=== PATIENT | male | born 1950 | race Caucasian/White ===

== ENCOUNTER 2022-07-05 12:51 | Inpatient (IN) | payer OTHER ==
[~2022-07-05] VITALS: Ht 182.9 cm; Wt 62.1 kg
[2022-07-05 12:56] VITALS: BP 183/135
[2022-07-05 14:21] LABS: HEMOGLOBIN 12.2 g/dL (12.0-18.0)
--- NOTE | 2022-07-05 14:24 | NUR ---
PT W/C ASSISTED TO ER BED 12 FROM RAD
[2022-07-05 14:29] LABS: HEMATOCRIT 37.8 % (36-52); MEAN CORPUSCULAR HEMOGLOBIN 29 pg (27-31); MEAN CORPUSCULAR HGB CONC 32 g/dL (33-37); MEAN CORPUSCULAR VOLUME 88.4 fL (80-94); PLATELET COUNT (AUTO) 161 K/uL (140-450); RED BLOOD CELL COUNT(AUTO) 4.27 MIL/uL (4.20-6.10); RED CELL DISTRIBUTION WIDTH 15.5 % (11.6-13.7)
--- NOTE | 2022-07-05 14:31 | NUR ---
71/M PRESENTS TO ED WITH C/O LEFT UPPER BACK PAIN X3 DAYS. PATIENT DENIES RECENT INJURY OR TRAUMA, RPEORTS HE HAS BEEN TAKING IBUPROFEN AND USING LIDOCAINE PATCHES WITH NO RELIEF. AREA IS NON TENDER TO TOUCH, PATIENT DENIES N/V/D, CP OR WORSENING SOB WITH HX OF COPD.
[2022-07-05 14:50] LABS: ALBUMIN 3.9 g/dL (3.4-5.0); ANION GAP 9.6 (8-16); ASPARTATE AMINOTRANSFERASE 19 U/L (15-37); CARBON DIOXIDE 32.4 mmol/L (21-32); CHLORIDE 92 mmol/L (98-107); CREATININE 0.8 mg/dL (0.6-1.3); GFR ARICAN-AMERICAN 123 mL/min (>90); GLUCOSE 122 mg/dL (74-106); SODIUM SERUM 129 mmol/L (136-145); TOTAL BILIRUBIN 0.5 mg/dL (0.0-1.0); UREA NITROGEN, BLOOD 14 mg/dL (7-18)
[2022-07-05 14:51] LABS: WHITE BLOOD COUNT (AUTO) 25.9 K/uL (4.8-10.8)
[2022-07-05 15:05] LABS: MONOCYTES % (MANUAL) 7 % (5-12)
[2022-07-05 15:06] LABS: LYMPHOCYTES % (MANUAL) 45 % (20-46)
[2022-07-05] MEDS ORDERED: MORPHINE SULFATE 4 MG/ML SYR IVP ONE (16:00)
--- NOTE | 2022-07-05 17:25 | NUR ---
PATIENT TAKEN TO CT VIA W/C
[2022-07-05] MEDS ORDERED: MORPHINE SULFATE 10 MG/ML VIAL IVP ONE (17:55)
[2022-07-05] MEDS ORDERED: ONDANSETRON 4 MG/2 ML VIAL IVP ONE (18:05)
[2022-07-05] MEDS ORDERED: ESMOLOL 100 MG/10 ML VIAL IV ONE (18:05)
--- NOTE | 2022-07-05 19:22 | NUR ---
Pt report given to DAYANA DUKE. Transfer of care at this time.
--- NOTE | 2022-07-05 19:32 | NUR ---
DAUGHTER CALLED REQUESTING UPDATE RAJ MARTIN [phone] CHECK IF PHONE IS AVAILABLE
[2022-07-05] MEDS ORDERED: KCL 20 MEQ/WATER INJ PREMIX 200 ML IV PRN (20:15)
[2022-07-05] MEDS ORDERED: ONDANSETRON 4 MG/2 ML VIAL IVP PRN (20:15)
[2022-07-05] MEDS ORDERED: AZITHROMYCIN 500 MG in DEXTROSE 5% 250 ML IV ONE (20:15)
[2022-07-05] MEDS ORDERED: MAG SULF 2000 MG/WATER PREMIX 50 ML IV PRN (20:15)
[2022-07-05] MEDS ORDERED: POTASSIUM CHLORIDE 10 MEQ TABER PO PRN (20:15)
[2022-07-05] MEDS ORDERED: MAGNESIUM OXIDE 400 MG TAB PO PRN (20:15)
[2022-07-05] MEDS ORDERED: ACETAMINOPHEN 325 MG TAB PO PRN (20:15)
[2022-07-05] MEDS ORDERED: cefTRIAXone 1,000 MG VIAL ONE (21:26)
[2022-07-05] MEDS ORDERED: SPIMDI INH (22:02)
[2022-07-05] MEDS ORDERED: ALBU0.0912 IH (22:02)
[2022-07-05] MEDS ORDERED: BUDE1AER IH (22:02)
--- NOTE | 2022-07-05 22:13 | NUR ---
Patient will be admitted to care of Juan DUKE.. Admited to telemetry. Will go to room 112B. Belongings list completed. Bedside report given to Juan DUKE. Juan DUKE verbalized understanding of report, no further questions.
--- NOTE | 2022-07-05 22:30 | NUR ---
RECEIVED A NEW ADMIT PATIENT FROM ER AWAKE AOX4. CC: NONRADIATING LEFT UPPER BACK PAIN ASSOCIATED WITH SOB, NAUSEA AND ABDOMINAL PAIN. PT ON TELE MONITOR. NO DISTRESS NOTED. SKIN WARM AND DRY TO THE TOUCH. MRSA SCREENING DONE. ALL SAFETY PRECAUTIONS ARE IN PLACE. CALL LIGHT WITHIN REACH.
[2022-07-05] MEDS ORDERED: AZITHROMYCIN 500 MG INJ VIAL IV ONE (22:52)
[2022-07-05] MEDS: HYDROcodone/APAP 5/325 MG 1 TAB TAB PO PRN (22:55)
--- NOTE | 2022-07-05 22:55 | NUR ---
PT COMPLAINED OF MODERATE BACK PAIN, MEDICATED.
--- NOTE | 2022-07-05 23:25 | NUR ---
STARTED A NEW IV ON THE RIGHT UPPER ARM WITH GOOD BACK FLOW OF BLOOD, TOLERATED WELL.
[2022-07-05] MEDS: AZITHROMYCIN 500 MG in DEXTROSE 5% 250 ML IV SCH (23:34)
[2022-07-06] VITALS (7 sets, daily range): BP systolic 83–141; BP diastolic 54–91
--- NOTE | 2022-07-06 03:10 | NUR ---
ROUNDED PT, PATIENT SLEEPING . BREATHING NORMAL WITH SYMMETRICAL RISE AND FALL OF THE CHEST.
--- NOTE | 2022-07-06 04:50 | NUR ---
BP-78/50 P-[address] GARCIA ARTIST REPRESENTATIVE WITH NEW ORDER CARRIED OUT
[2022-07-06] MEDS ORDERED: NACL 0.9% 1,000 ML IV SCH (04:55)
[2022-07-06] MEDS: HYDROcodone/APAP 5/325 MG 1 TAB TAB PO PRN (05:37)
--- NOTE | 2022-07-06 07:30 | NUR ---
ENDORSED PATIENT TO MORNING SHIFT NURSE FOR CONTINUITY OF CARE. BP- 113/76 , P-80
--- NOTE | 2022-07-06 07:31 | NUR ---
RECEIVED REPORT FROM ORDER CHECKER NURSE. PATIENT LYING DOWN IN BED, ON O2 NC 3L/MIN, DENIES CHEST PAIN, MILD DYSPNEA COMPLAINT. IV SITE INTACT, PATENT, ON SALINE LOCK. SKIN INTACT. REVIEWED PLAN OF CARE WITH PATIENT. VERBALIZED UNDERSTANDING. SAFETY MEASURES IN PLACE, CALL LIGHT WITHIN REACH. WILL CONTINUE TO MONITOR.
[2022-07-06 07:40] LABS: CARBON DIOXIDE 28.1 mmol/L (21-32); CREATININE 0.8 mg/dL (0.6-1.3)
[2022-07-06 07:51] LABS: HEMATOCRIT 27.3 % (36-52); HEMOGLOBIN 8.8 g/dL (12.0-18.0); LYMPHOCYTES % (AUTO) 52.8 % (20.5-51.1); MEAN CORPUSCULAR HEMOGLOBIN 29 pg (27-31); MEAN CORPUSCULAR HGB CONC 32 g/dL (33-37); MEAN CORPUSCULAR VOLUME 89.2 fL (80-94); MONOCYTES # (AUTO) 1.2 K/uL (0.8-1.0); MONOCYTES % (AUTO) 3.1 % (1.7-9.3); NEUTROPHILS # (AUTO) 16.8 K/uL (1.8-7.7); NEUTROPHILS % (AUTO) 44.1 % (42.2-75.2); PLATELET COUNT (AUTO) 146 K/uL (140-450); RED BLOOD CELL COUNT(AUTO) 3.06 MIL/uL (4.20-6.10); RED CELL DISTRIBUTION WIDTH 14.8 % (11.6-13.7)
[2022-07-06 08:25] LABS: POTASSIUM 6.1 mmol/L (3.5-5.1)
[2022-07-06] MEDS: ENOXAPARIN 40 MG/0.4 ML SYR SUBQ SCH (09:00)
--- NOTE | 2022-07-06 09:00 | NUR ---
PATIENT HAS BEEN SCREENED AND CATEGORIZED MODERATE NUTRITION RISK. PATIENT WILL BE SEEN WITHIN 3-5 DAYS OF ADMISSION. 07/06/22-07/10/22 REVIEWED BY MAUREEN JC RD
[2022-07-06] MEDS ORDERED: NACL 0.9% 500 ML IV SCH (09:05)
--- NOTE | 2022-07-06 09:29 | NUR ---
500 ML NS BOLUS STARTED AT THIS TIME PER MD ORDERS DUE TO LOW BP. LOVENOX NOT GIVEN AT THIS TIME D/T H&H DECREASING AND AAA ON CT. WILL CONTINUE OT MONITOR.
--- NOTE | 2022-07-06 14:12 | NUR ---
DC PLANNING Met patient at bedside to complete assessment. Patient reports residing with spouse at home at the address listed. Patient identified Gabi Fernandez () as emergency contact and MDM. Patient denied AD in place. AD packet given and patient will talk with his .Patient reports being compliant with medications and denies barriers to accessing medications. Patient reports his PCP is Nelly Cage NP.Patient reports his last visit to his PCP was 2 weeks ago.Patient reports ambulatory and denies use of DME. Patient denies MH/SA hx. DC plan is for patient to return home with providing transportation and required care if needed.
[2022-07-06 15:01] LABS: HEMATOCRIT 24.3 % (36-52); HEMOGLOBIN 7.8 g/dL (12.0-18.0); MEAN CORPUSCULAR HEMOGLOBIN 29 pg (27-31); MEAN CORPUSCULAR HGB CONC 32 g/dL (33-37); MEAN CORPUSCULAR VOLUME 88.8 fL (80-94); PLATELET COUNT (AUTO) 144 K/uL (140-450); RED BLOOD CELL COUNT(AUTO) 2.73 MIL/uL (4.20-6.10)
[2022-07-06 15:02] LABS: WHITE BLOOD COUNT (AUTO) 36.3 K/uL (4.8-10.8)
[2022-07-06 15:11] LABS: ANION GAP 13.9 (8-16); CARBON DIOXIDE 25.9 mmol/L (21-32); CREATININE 1.1 mg/dL (0.6-1.3); POTASSIUM 5.8 mmol/L (3.5-5.1)
[2022-07-06] MEDS: IPRATROPIUM 0.02% 0.5 MG/2.5 ML NEBU INH SCH ×2 (15:40→20:06)
[2022-07-06 16:00] LABS: BLASTS, MANUAL % 2 % (0-0); LYMPHOCYTES % (MANUAL) 55 % (20-46); METAMYELOCYTES % 2 % (0-0); MONOCYTES % (MANUAL) 1 % (5-12); PROMYELOCYTES % 1 % (0-0)
[2022-07-06] MEDS: predniSONE 20 MG TAB PO SCH (16:55)
[2022-07-06] MEDS: NACL 0.9% 1,000 ML IV SCH (16:55)
[2022-07-06] MEDS ORDERED: SODIUM ZIRCONIUM CYCLOSILICATE 10 GM POWD.PACK PO SCH (17:00)
[2022-07-06] MEDS ORDERED: SODIUM CHLORIDE 1 GM TAB PO SCH (17:00)
--- NOTE | 2022-07-06 17:08 | NUR ---
SCHEDULED MEDICATIONS DUE GIVEN. WILL CONTINUE TO MONITOR.
--- NOTE | 2022-07-06 18:30 | NUR ---
COMPLAINS OF LOWER BACK PAIN, ACHING MILD. TYLENOL PO PRN GIVEN AT THIS TIME.
[2022-07-06 18:44] LABS: APPEARANCE,URINE CLEAR (CLEAR); BILIRUBIN,URINE 1+ (NEGATIVE); BLOOD, URINE NEGATIVE (NEGATIVE); COLOR,URINE YELLOW (YELLOW); LEUKOCYTE ESTERASE ,URINE NEGATIVE (NEGATIVE); NITRITE, URINE NEGATIVE (NEGATIVE); UGLUCOSE NEGATIVE (NEGATIVE)
[2022-07-06 19:14] LABS: ANION GAP 14.8 (8-16); CARBON DIOXIDE 24.4 mmol/L (21-32); CREATININE 1.3 mg/dL (0.6-1.3); POTASSIUM 5.2 mmol/L (3.5-5.1)
--- NOTE | 2022-07-06 19:33 | NUR ---
GAVE REPORT TO RELIGIOUS ASSISTANT NURSE FOR CONTINUITY OF CARE. PATIENT IN STABLE CONDITION.
[2022-07-06] MEDS: BUDESONIDE 0.5 MG/2 ML NEBU INH SCH (20:06)
--- NOTE | 2022-07-06 20:17 | NUR ---
PT PRESENTS LAYING IN BED, HOB ELEVATED ON 3 LPM N/C CURRENT SPO2 IS 88%. INCREASED TO 4LPM SPO2 IMPROVED >92%. PT DEMONSTRATES STRONG PRODUCTIVE COUGH, ADMINISTERED HHN TX VIA SVN PLUS MASK WITH NO ADVERSE EFFECTS NOTED. PT STATES HE IS IN PAIN RN AWARE, WILL CONTINUE TO MONITOR.
[2022-07-06] MEDS: AZITHROMYCIN 500 MG in DEXTROSE 5% 250 ML IV SCH (21:00)
[2022-07-06] MEDS ORDERED: NON-FORMULARY ITEM (Budesonide/Formoterol Fumarate* (Symbicort 160-4.5 Mcg Inhaler*) 2 PUF IH SCH (21:00)
[2022-07-07] VITALS: BP 122/74
--- NOTE | 2022-07-07 00:35 | NUR ---
PATIENT AWAKE ALERT NO C/O OF PAIN IV LEAKING RESTART IV IN LEFT F.A 22 GA PATIENT. SINUS ON MONITOR HAS NS INFUSING AT 75 HOUR. PATIENT USING URINAL NO BOWEL MOVEMENT YET.
--- NOTE | 2022-07-07 00:40 | NUR ---
PATIENT HAS 4 LITERS HUMIDIFIER SAT 96% TEMP 97.8 NO DISTRESS NOTED.
[2022-07-07] MEDS: IPRATROPIUM 0.02% 0.5 MG/2.5 ML NEBU INH SCH ×3 (01:00→13:08)
[2022-07-07 04:00] VITALS: BP 131/72
[2022-07-07] MEDS: ALBUTEROL 0.083% 2.5 MG/3 ML NEBU INH PRN ×3 (04:11→13:09)
--- NOTE | 2022-07-07 04:35 | NUR ---
RESPONDED TO PT ROOM FOR REQUEST OF SERVICE FROM RN DUE TO THE PT STATING HE WAS SOB. PT IS LAYING IN BED HOB ELEVATED, ANTERIOR AUSCULTATIONS REVEALED DIMINISHED BS THROUGHOUT, CURRENTLY ON 4LPM N/C SPO2 96%. ADMINISTERED HHN TX VIA SVN PLUS MASK WITH NO ADVERSE EFFECTS. PT STATES THE TX MADE HIM FEEL BETTER. HE ALSO MENTIONED HE WAS IN PAIN RN IS AWARE WILL CONTINUE TO MONITOR.
[2022-07-07] MEDS: NACL 0.9% 1,000 ML IV SCH ×2 (06:00→18:19)
--- NOTE | 2022-07-07 07:19 | NUR ---
LOC AWAKE AND ALERT VERBALLY RESPONSIVE TO MEETING FACILITATOR VERBAL COMMANDS DEEP CHEST RISE PMHX: COPD; PULMONARY NODULES TO RUL AND ARIELLE; AAA REPAIR 2011; HEMATOLOGY 07/07/2022 AT 0615 Hgb 6.1 Hct 18.8; RECEIVED ON HUMIDIFIED SUPPLEMENTAL OXYGEN AT 4 LPM VIA NC; POST HHN THERAPY TITRATED FIO2 TO 2 LPM; PATIENT POSSIBLE CANDIDATE FOR HIGH FLOW NASAL CANNULA; MEETING FACILITATOR TO MONITOR
[2022-07-07] MEDS: BUDESONIDE 0.5 MG/2 ML NEBU INH SCH ×2 (07:35→18:51)
[2022-07-07 07:37] LABS: BASOPHILS # (AUTO) 0.1 K/uL (0.00-0.22); BASOPHILS % (AUTO) 0.1 % (0.0-2.0); LYMPHOCYTES # (AUTO) 23.7 K/uL (2.0-11.5); LYMPHOCYTES % (AUTO) 56.2 % (20.5-51.1); MEAN CORPUSCULAR HEMOGLOBIN 29 pg (27-31); MEAN CORPUSCULAR HGB CONC 32 g/dL (33-37); MEAN CORPUSCULAR VOLUME 89.8 fL (80-94); MONOCYTES # (AUTO) 1.3 K/uL (0.8-1.0); MONOCYTES % (AUTO) 3.2 % (1.7-9.3); NEUTROPHILS # (AUTO) 17.1 K/uL (1.8-7.7); NEUTROPHILS % (AUTO) 40.5 % (42.2-75.2); PLATELET COUNT (AUTO) 140 K/uL (140-450); RED BLOOD CELL COUNT(AUTO) 2.09 MIL/uL (4.20-6.10)
[2022-07-07 07:47] LABS: WHITE BLOOD COUNT (AUTO) 42.2 K/uL (4.8-10.8)
[2022-07-07 07:48] LABS: HEMATOCRIT 18.8 % (36-52); HEMOGLOBIN 6.1 g/dL (12.0-18.0)
[2022-07-07 08:00] VITALS: BP 117/65
[2022-07-07 08:06] LABS: ANION GAP 13.7 (8-16); CARBON DIOXIDE 24.6 mmol/L (21-32); CREATININE 1.2 mg/dL (0.6-1.3); POTASSIUM 5.3 mmol/L (3.5-5.1)
[2022-07-07] MEDS ORDERED: NON-FORMULARY ITEM (Tiotropium Bromide* (Spiriva Mdi*) 2 PUFF) INH SCH (09:00)
[2022-07-07] MEDS: predniSONE 20 MG TAB PO SCH (09:47)
[2022-07-07] MEDS: ENOXAPARIN 40 MG/0.4 ML SYR SUBQ SCH (09:50)
--- NOTE | 2022-07-07 09:55 | NUR ---
ALL SCHEDULED MEDS GIVEN. PT IS STABLE. NO DISTRESS NOTED. WILL CONTINUE TO MONITOR.
--- NOTE | 2022-07-07 11:42 | NUR ---
FORMING DEPARTMENT END FINDER CALLED TO BEDSIDE; SUPPLEMENTAL OXYGEN AT 4 LPM VIS NC (REVIEWED PMHX WITH EDGAR/SRIKANTH) SATURATION 99% PATIENT C/O SOB RESPIRATORY RATE AT 28 BPM; DEEP CHEST RISE; HHN PRN THERAPY GIVEN; POST HHN THERAPY TITRATED FIO2 TO 2 LPM VIA NC; FORMING DEPARTMENT END FINDER TO PLACE PATIENT ON HIGH FLOW NASAL CANNULA TO COMPENSATE FOR OXYGEN DEFICIT
--- NOTE | 2022-07-07 11:45 | NUR ---
PT COMPLAINED OF SOB. PT WAS ON 2L NC 85%, TITRATED PATIENT TO 4L. O2 SATURATION AT 97%. CONTACTED RT AND REQUESTED FOR PRN BREATHING TREATMENTS.
[2022-07-07 12:00] VITALS: BP 94/67
--- NOTE | 2022-07-07 12:10 | NUR ---
REVIEWED HIGH FLOW NASAL CANNULA SETTINGS WITH DK/AUTO BRAKE TECHNICIAN WILL NOTIFY EDGAR/SRIKANTH
--- NOTE | 2022-07-07 13:09 | NUR ---
REVIEWED HIGH FLOW NASAL CANNULA SETTINGS WITH JUAN
--- NOTE | 2022-07-07 13:52 | NUR ---
REVIEWED WITH DR. ALEXIS NOVA PULMONARY STATUS; INCREASE SOB THIS AM; PULMONARY OXYGEN DEFICIT; PLACEMENT OF HIGH FLOW NASAL CANNULA; HEMATOLOGY 07/07 Hgb 6.1 Hct 18.8; HHN THERAPY DRUGS TYPE AND FREQUENCY JEAN MARIE NOVA: [facility] CURRENT RESPIRATORY DRUGS; DUONEB Q6 AND Q4 PRN FOR SOB; KEEP SATURATION GREATER THAN 88% Addendum: 07/07/22 at 1701 by Jassi Bird RT DC ATROVENT AND ALBUTEROL ONLY
--- NOTE | 2022-07-07 14:08 | NUR ---
DR. FISHER AT BEDSIDE DISCUSSING PLAN OF CARE WITH PATIENT. DR. FISHER DISCUSSED BLOOD TRANSFUSION WITH PATIENT. PT UNDERSTANDS AND AGREES WITH BLOOD TRANSFUSION. BLOOD CONSENT OBTAINED AND PLACED IN CHART.
[2022-07-07] MEDS ORDERED: LACTULOSE 20 GM/30 ML UDC PO SCH (14:40)
[2022-07-07] MEDS ORDERED: SODIUM CHLORIDE 1 GM TAB PO SCH (14:41)
[2022-07-07 16:00] VITALS: BP 122/46
--- NOTE | 2022-07-07 16:00 | NUR ---
STARTED 1 UNIT OF PRBC. PRE-VS STABLE. NO DISTRESS AT THE MOMENT. WILL CONTINUE TO MONITOR.
[2022-07-07] MEDS ORDERED: ALBUTEROL SULFATE/IPRATROPIU 3 ML SOL IH PRN (17:05)
--- NOTE | 2022-07-07 18:15 | NUR ---
BLOOD TRANSFUSION COMPLETE. PT IS STABLE. NO DISTRESS NOTED. WILL CONTINUE TO MONITOR.
[2022-07-07] MEDS: ALBUTEROL SULFATE/IPRATROPIU 3 ML SOL IH SCH (18:51)
--- NOTE | 2022-07-07 19:45 | NUR ---
RECEIVED REPORT FROM DAYSMTFT NURSE. NO S/S OF DISTRESS. CALL LIGHT IN REACH. ALL SAFETY MEASURES IN PLACE. IV RUNNING PER MD ORDERS. CUEVA AT BEDSIDE. IV SITE PATENT, NO INFILTRATION.
[2022-07-07 20:00] VITALS: BP 153/80
--- NOTE | 2022-07-07 20:05 | NUR ---
NOTIFIED MD OF H/H 6.8/20.7, ORDER FOR 1 UNIT PRBC.
[2022-07-07 20:15] LABS: MONOCYTES # (AUTO) 0.6 K/uL (0.8-1.0)
[2022-07-07 20:17] LABS: HEMATOCRIT 20.7 % (36-52); LYMPHOCYTES # (AUTO) 12.1 K/uL (2.0-11.5); LYMPHOCYTES % (AUTO) 60.8 % (20.5-51.1); MEAN CORPUSCULAR HEMOGLOBIN 29 pg (27-31); MEAN CORPUSCULAR HGB CONC 33 g/dL (33-37); MEAN CORPUSCULAR VOLUME 88.2 fL (80-94); MONOCYTES % (AUTO) 2.9 % (1.7-9.3); NEUTROPHILS # (AUTO) 7.2 K/uL (1.8-7.7); NEUTROPHILS % (AUTO) 36.3 % (42.2-75.2); PLATELET COUNT (AUTO) 162 K/uL (140-450); RED BLOOD CELL COUNT(AUTO) 2.35 MIL/uL (4.20-6.10); RED CELL DISTRIBUTION WIDTH 15.3 % (11.6-13.7)
[2022-07-07 20:22] LABS: HEMOGLOBIN 6.8 g/dL (12.0-18.0)
[2022-07-07] MEDS: AZITHROMYCIN 500 MG in DEXTROSE 5% 250 ML IV SCH (20:45)
[2022-07-07] MEDS: methylPREDNISolone SS 40 MG/ML VIAL IVP SCH (20:45)
--- NOTE | 2022-07-07 22:15 | NUR ---
STARTED 1 UNIT (SECOND OF DAY) PRBC PER MD ORDER. NO S/S OF DISTRESS. NO REACTION TO LAST UNIT OF BLOOD RECEIVED. NURSE AT BEDSIDE
[2022-07-07] MEDS ORDERED: SODIUM POLYSTYRENE 15 GM/60 ML UDBTL PO PRN ×2 (23:05)
--- NOTE | 2022-07-07 23:05 | NUR ---
NOTIFIED OF K 5.3, ORDER RECEIVED FOR PRN.
--- NOTE | 2022-07-07 23:52 | NUR ---
PRBC TRANSFUSING. VITALS STABLE. NO S/S OF DISTRESS. CALL LIGHT IN REACH. ALL SAFETY MEASURES IN PLACE.
[2022-07-08] VITALS: BP 141/68
[2022-07-08] MEDS: ALBUTEROL SULFATE/IPRATROPIU 3 ML SOL IH SCH (00:59)
--- NOTE | 2022-07-08 01:30 | NUR ---
BLOOD TRANSFUSION COMPLETED. VITALS STABLE. NO S/S OF DISTRESS. CALL LIGHT IN REACH. ALL SAFETY MEASURES IN PLACE. INFORMED PT THAT LAB WILL COME TO DRAW BLOOD IN 2 HOURS. PT VERBALIZED UNDERSTANDING. RESTARTED PT IV FLUIDS AND ABX PER MD ORDER
--- NOTE | 2022-07-08 03:57 | NUR ---
PT RESTING IN BED, EYES CLOSED. NO S/S OF DISTRESS. IV FLUIDS RUNNING PER MD ORDER. HIGH FLOW NC IN USE. CALL LIGHT IN REACH. ALL SAFETY MEASURES IN PLACE
[2022-07-08 04:00] VITALS: BP 138/70
[2022-07-08 04:24] LABS: ANION GAP 11.7 (8-16); CARBON DIOXIDE 26.1 mmol/L (21-32); CREATININE 1.1 mg/dL (0.6-1.3); POTASSIUM 4.8 mmol/L (3.5-5.1)
[2022-07-08 04:41] LABS: HEMATOCRIT 23.8 % (36-52); HEMOGLOBIN 7.7 g/dL (12.0-18.0); MEAN CORPUSCULAR HEMOGLOBIN 28 pg (27-31); MEAN CORPUSCULAR HGB CONC 32 g/dL (33-37); MEAN CORPUSCULAR VOLUME 85.8 fL (80-94); PLATELET COUNT (AUTO) 158 K/uL (140-450); RED BLOOD CELL COUNT(AUTO) 2.77 MIL/uL (4.20-6.10); RED CELL DISTRIBUTION WIDTH 16.1 % (11.6-13.7)
[2022-07-08 04:47] LABS: LYMPHOCYTES % (MANUAL) 60 % (20-46)
[2022-07-08 04:51] LABS: WHITE BLOOD COUNT (AUTO) 41.4 K/uL (4.8-10.8)
--- NOTE | 2022-07-08 04:52 | NUR ---
PT STATED PAIN IN BACK 03/25. PT MEDICATED FOR PAIN. WILL CONTINUE TO MONITOR
[2022-07-08] MEDS: HYDROcodone/APAP 5/325 MG 1 TAB TAB PO PRN (04:53)
[2022-07-08] MEDS: methylPREDNISolone SS 40 MG/ML VIAL IVP SCH ×2 (04:53→08:19)
--- NOTE | 2022-07-08 05:53 | NUR ---
AT 0537 STUBBER CALLED TO NOTIFY THAT PT HR DROPPED. WHEN ARRIVING TO THE ROOM PT WAS UNRESPONSIVE AND PALE/YELLOW. PT BEGAN DISPLAYING AGONAL BREATHS WITH A WEAK CAROTID PULSE. AT 0540 PT NO LONGER HAD PULSE AND BREATHING HAD STOPPED, NO RISE OR FALL OF CHEST NOTED. ED DOCTOR WAS CALLED AND PT WAS PRONOUNCED AT 0546. PT FAMILY DONA BERGMAN WAS INFORMED AND WILL BE ON HER WAY. FAST FOOD SERVICES MANAGER AND [facility] TO BE CALLED
--- NOTE | 2022-07-08 05:58 | NUR ---
[facility] CALLED,
--- NOTE | 2022-07-08 06:08 | NUR ---
NOTIFIED DR. HANNON. CALLED ROUTE SERVICE REPRESENTATIVE AT 0604, WAITING FOR CALLBACK
--- NOTE | 2022-07-08 06:12 | NUR ---
CALLED [facility] IN ADMITTING TO NOTIFY OF PT
--- NOTE | 2022-07-08 07:01 | NUR ---
SPOKE TO CORONERS OFFICE. NOT A CORONERS CASE, BODY RELEASED BY DEPUTY MARIA ELENA CARRINGTON.
--- NOTE | 2022-07-08 07:38 | NUR ---
ENDORSED TO DAYSHIFT NURSE. ALL LINES AND TUBING REMOVED. TELE BOX REMOVED.
--- NOTE | 2022-07-08 07:39 | NUR ---
RECEIVED PT REPORT FROM JOINT SETTER NURSE FOR CONTINUITY OF CARE. PT AT 05, CURRENTLY WAITING FOR FAMILY TO DECIDE ON MORTUARY. Addendum: 07/08/22 at 0808 by Heri Dennis RN RN PT AT 0546.
[2022-07-08] MEDS: NACL 0.9% 1,000 ML IV SCH (08:05)
--- NOTE | 2022-07-08 08:30 | NUR ---
PATIENT'S FAMILY AT BEDSIDE.
[2022-07-08] MEDS: ENOXAPARIN 40 MG/0.4 ML SYR SUBQ SCH (08:44)
--- NOTE | 2022-07-08 08:53 | NUR ---
spoke with family and provided support needed. mortuary resources were provided. arrangement made with [facility] [phone] by family.
[2022-07-08 09:07] LABS: FOLIC ACID 14.9 ng/mL (>3.0)
--- NOTE | 2022-07-08 09:30 | NUR ---
CONTACTED [facility] AND FOLLOWED UP ON ETA TO TRANSPORT PATIENT'S BODY. THEY STATED IN AN HOUR THEY WILL BE HERE.
--- NOTE | 2022-07-08 10:55 | NUR ---
FAMILY SIGNED RELEASE FORM. WAITING FOR MORTUARY TO PICK PATIENT UP.
--- NOTE | 2022-07-08 12:40 | NUR ---
SIGNED RELEASE FORMS AND RELEASED BODY WITH SECURITY TO MORTUARY LITIGATION EXAMINER. PATIENT BODY WILL BE TRANSPORTED TO [facility]
== END 2022-07-08 13:04 | DRG 871 ==
LOC: MED 12:51 → MTU 20:21
PROVIDERS: ADMIT Hospitalist; ATTEND Hospitalist
PROC: 30233N1 Transfusion of Nonautologous Red Blood Cells into Peripheral Vein, Percutaneous Approach (ICD-10-PCS; principal; 2022-07-07)
DX: A41.9 Sepsis, unspecified organism (principal); J18.9 Pneumonia, unspecified organism; J96.01 Acute respiratory failure with hypoxia; N17.9 Acute kidney failure, unspecified; C91.10 Chronic lymphocytic leukemia of B-cell type not having achieved remission; E87.1 Hypo-osmolality and hyponatremia; J43.9 Emphysema, unspecified; Z20.822 Contact with and (suspected) exposure to COVID-19; I71.9 Aortic aneurysm of unspecified site, without rupture; J92.9 Pleural plaque without asbestos; R19.00 Intra-abdominal and pelvic swelling, mass and lump, unspecified site; N14.1 Nephropathy induced by other drugs, medicaments and biological substances; T50.8X5A Adverse effect of diagnostic agents, initial encounter; E87.5 Hyperkalemia; I71.4 Abdominal aortic aneurysm, without rupture; D64.9 Anemia, unspecified; Z87.891 Personal history of nicotine dependence; Z79.899 Other long term (current) drug therapy; Y92.89 Other specified places as the place of occurrence of the external cause; Z66 Do not resuscitate
CPT/HCPCS: 36415; 71045; 71275; 80048; 80053; 81003; 82607; 82728; 82746; 83540; 83605; 83625; 83880; 83930; 83935; 84300; 84484; 85025; 86886; 86900; 86901; 86920; 87040; 87081; 93005; 94640; 96365; 96375; 96376; 99285; J0456; J0696; J1650; J2270; J2405; J2920; J7060; J7512; J7613; J7626; J7644; P9016; Q9967